=== PATIENT | female | born 1950 | race Caucasian/White ===

== ENCOUNTER 2017-06-08 07:29 | Emergency (ER) | payer OTHER, MEDICAID ==
[2017-06-08] MEDS ORDERED: PROMETHAZINE HCL 25 MG/ML INJ IVP ONE (08:01)
[2017-06-08] MEDS ORDERED: ONDANSETRON 4 MG/2 ML VIAL IVP ONE (08:01)
[2017-06-08] MEDS ORDERED: NS 1,000 ML IV ONE (08:01)
[2017-06-08] MEDS ORDERED: HALOPERIDOL LACT 5 MG/ML INJ IVP ONE (08:02)
[2017-06-08] MEDS ORDERED: IBUPROFEN 600 MG TAB PO ONE (08:15)
--- NOTE | 2017-06-08 08:15 | EDPHY ---
H & P Time Seen by Provider: 06/08/17 08:01 HPI/ROS: HPI Right foot injury. 66-year-old female by private vehicle with her friend. This patient reports that her dog dropped a bone on the dorsal aspect of her right midfoot. She complains of isolated pain to the right mid foot. She states the pain is worse with weight-bearing and she has difficulty weight-bearing on the right foot. She denies ankle or leg pain. No other complaint or injury. ROS: Constitutional: No fever, no chills. No weakness. Musculoskeletal: No back pain. No neck pain. As above. Skin: No rashes. No lacerations or abrasions. Neurological: No focal weakness or altered sensation. Past medical history: Social history: Physical Exam: General Appearance: Alert, no distress. This patient is responding to questions appropriately and in full sentences. This patient appears well- hydrated and well-nourished. Eyes: Pupils equal and round no pallor or injection. No lid edema, erythema or injection. Right foot exam: Significant for tenderness on palpation of the dorsal bony aspect of the right foot, from the proximal aspect of the metatarsals through the midfoot to distal dorsal ankle. There is no ecchymosis. No significant swelling. No deformity or crepitus noted on palpation. No warmth or erythema. No tenderness on palpation of the posterior aspects of the foot and ankle as well as the bilateral malleoli. No tenderness on palpation of the leg in the proximal fibula. The right foot is neurovascularly intact. Neurological: Motor sensory function is grossly intact. Cranial nerves are normal. Gait is normal. Skin: Warm and dry, no rashes. Musculoskeletal: Neck is supple and nontender. Extremities are symmetrical. All joints range without pain or impingement. Psychiatric: No agitation. No depression. Database: EKG: Imaging: Right foot x-ray series: Negative for fracture, subluxation, dislocation. Interpreted by me. Procedures: Emergency department course: After my evaluation, she was given 1 [place] tablets and 600 mg of ibuprofen. She was sent for appropriate x-rays. 8:40 a.m., patient re-evaluated. Resting comfortably at this time. Results of her x-rays were discussed with her. She states that she has an orthopedic boot at home as well as crutches. She states that she does have pain with weight- bearing. Plan will be to send her home with orthopedic boot and crutches, nonweightbearing. We will have her evaluated by Orthopedics in the next 2-3 days. Advance in imaging can be obtained as needed by Orthopedics. She is in agreement with this plan. Return to emergency department precautions were reviewed with her. All of her questions were answered. She was discharged in good condition. Differential Diagnosis: The differential diagnosis on this patient includes but is not limited to right foot sprain, right foot contusion. Lisfranc injury, fracture, subluxation, dislocation of the right foot or ankle unlikely. This represents a partial list of diagnoses considered. These considerations are based on history, physical exam, past history, reassessment and diagnostic testing. Smoking Status: Light smoker Constitutional: Initial Vital Signs Temperature (C) 36.6 C 06/08/17 07:34 Heart Rate 74 06/08/17 07:34 Respiratory Rate 16 06/08/17 07:34 Blood Pressure 146/76 H 06/08/17 07:34 O2 Sat (%) 97 06/08/17 07:34 O2 Delivery Mode Room Air Allergies/Adverse Reactions: morphine Allergy (Verified 02/25/15 11:16) Vomiting Penicillins Allergy (Verified 06/25/14 00:25) Home Medications: Medication Instructions Recorded Albuterol Sulfate [Albuterol 2 puffs IH DAILY PRN 02/21/15 Inhaler Hfa] Fluticasone/Salmeter 100/50Mcg 1 puffs IH BID 02/21/15 [Advair 100/50 (*)] Gabapentin [Neurontin 100 MG (*)] 100 mg PO TID 02/21/15 Meloxicam [Mobic 15 mg] 15 mg PO DAILY@18 02/21/15 Propranolol HCl [Inderal 20mg (*)] 20 mg PO BID 02/21/15 QUEtiapine FUMARATE [Seroquel 50 25 - 50 mg PO HS 02/21/15 mg (*)] Sertraline HCl [Zoloft 100mg (*)] 200 mg PO DAILY 02/21/15 clonazePAM [klonoPIN (*)] 0.5 mg PO BID 02/21/15 tiZANidine HCL [Zanaflex] 4 mg PO Q8 PRN 02/21/15 Hydrocodone/APAP 5/325 [[place] 1 - 2 tab PO Q4-6PRN PRN #7 tab 06/08/17 5/325 (*)] Medical Decision Making - Diagnostics Imaging Results: Imaging Impressions Foot X-Ray 06/08/17 07:36 Impression: Negative. No acute fracture. - Data Points Medications Given: Discontinued Medications Hydrocodone Bitart/Acetaminophen ([place] 5/325) 1 tab PO EDNOW ONE Stop: 06/08/17 08:17 Last Admin: 06/08/17 08:25 Dose: 1 tab Haloperidol Lactate (Haldol Injection) 2.5 mg IVP EDNOW ONE Stop: 06/08/17 08:03 Last Admin: 06/08/17 08:31 Dose: Not Given Sodium Chloride (Ns) 1,000 mls @ 0 mls/hr IV EDNOW ONE; Wide Open PRN Reason: Protocol Stop: 06/08/17 08:02 Last Admin: 06/08/17 08:31 Dose: Not Given Ibuprofen (Motrin) 600 mg PO EDNOW ONE Stop: 06/08/17 08:16 Last Admin: 06/08/17 08:25 Dose: 600 mg Ondansetron HCl (Zofran) 4 mg IVP EDNOW ONE Stop: 06/08/17 08:02 Last Admin: 06/08/17 08:32 Dose: Not Given Promethazine HCl (Phenergan) 6.25 mg IVP EDNOW ONE Stop: 06/08/17 08:02 Last Admin: 06/08/17 08:32 Dose: Not Given Departure - Departure Disposition: Home, Routine, Self-Care Clinical Impression: Right foot injury Condition: Good Instructions: Foot Contusion (ED), Foot Sprain (ED) Additional Instructions: Read and follow provided instructions. Follow-up with Orthopedics in 1-3 days days for re-evaluation. Advanced imaging can be obtained as needed by Orthopedics. Weightbear to right foot only as tolerated. Otherwise, crutches and orthopedic boot as discussed. Ibuprofen dosin mg every 6 hours with meals for the next 3 days only. [place]/Percocet dosin-2 every 4-[address] not drive on this medication. Return to the emergency department for worsening pain, discoloration, loss of sensation, swelling or other serious concerns. Referrals: Consuelo Tinsley MD [Primary Care Provider] - As per Instructions Gaston Callahan MD [Medical Doctor] - As per Instructions Prescriptions: Hydrocodone/APAP 5/325 [[place] 5/325 (*)] 1 - 2 tab PO Q4-6PRN PRN #7 tab PRN Reason: Pain, Moderate
[2017-06-08] MEDS ORDERED: HYDROCODONE/APAP 5/325 TAB PO ONE (08:16)
[2017-06-08 09:09] VITALS: BP 129/83; PULSE 58; RESP 18; TEMP 98.2; O2SAT 95
== END 2017-06-08 09:08 | disposition home or self-care (01) ==
DX: S99.921A Unspecified injury of right foot, initial encounter (principal); F17.200 Nicotine dependence, unspecified, uncomplicated; X58.XXXA Exposure to other specified factors, initial encounter

== ENCOUNTER 2019-02-10 11:32 | Inpatient (IN) | payer OTHER, MEDICAID ==
[2019-02-10] MEDS ORDERED: NS 1,000 ML IV ONE ×2 (11:51→13:19)
[2019-02-10] MEDS ORDERED: ONDANSETRON 4 MG/2 ML VIAL IVP ONE (11:52)
[2019-02-10 12:06] LABS: PLATELET COUNT 380 10^3/uL (150-400)
--- NOTE | 2019-02-10 12:22 | EDPHY ---
H & P Stated Complaint: Vomiting,weakness, Syncopal episodes Time Seen by Provider: 02/10/19 11:50 HPI/ROS: CHIEF COMPLAINT: Vomiting, syncope HISTORY OF PRESENT ILLNESS: 68-year-old female presents with persistent vomiting and syncope. Onset of nasal congestion, cough and sore throat 2 weeks ago. The cough has gradually increased and is productive of greenish phlegm. Associated with low-grade fever. Onset of shortness of breath yesterday. Vomited last night, followed by a syncopal episode. Recurrent syncope this morning after standing up. Continues to feel nauseated. Received a flu vaccination this year. REVIEW OF SYSTEMS: complete 10 point ROS reviewed and is negative except for the noted elements in the HPI - Personal History Tetanus Vaccine Date: 05/08/12 - Medical/Surgical History Hx Asthma: No Hx Chronic Respiratory Disease: No Hx Diabetes: No Hx Cardiac Disease: No Hx Renal Disease: No Hx Cirrhosis: No Hx Alcoholism: No Hx HIV/AIDS: No Hx Splenectomy or Spleen Trauma: No Other PMH: seizures, cll leukemia - Social History Smoking Status: Light smoker - Physical Exam Exam: General Appearance: Alert, pleasant Eyes: Pupils equal and round, no conjunctival injection ENT, Mouth: Mucous membranes slightly dry Neck: Normal inspection Respiratory: Lungs are clear to auscultation Cardiovascular: Regular rate and rhythm Gastrointestinal: Abdomen is soft and nontender Neurological: Alert, oriented x3, cranial nerves II through XII intact, motor 5 /5, sensory intact to light touch Skin: Warm and dry Extremities: Normal inspection Psychiatric: Mood and affect normal Constitutional: Initial Vital Signs Temperature (C) 36.6 C 02/10/19 11:39 Heart Rate 81 02/10/19 11:39 Respiratory Rate 16 02/10/19 11:39 Blood Pressure 123/96 H 02/10/19 11:39 O2 Sat (%) 98 02/10/19 11:39 O2 Delivery Mode Room Air Allergies/Adverse Reactions: morphine Allergy (Verified 02/25/15 11:16) Vomiting Penicillins Allergy (Verified 06/25/14 00:25) Home Medications: Medication Instructions Recorded Albuterol Sulfate [Albuterol 2 puffs IH DAILY PRN 02/21/15 Inhaler Hfa] Propranolol HCl [Inderal 20mg (*)] 20 mg PO BID 02/21/15 Sertraline HCl [Zoloft 100mg (*)] 200 mg PO DAILY 02/21/15 clonazePAM [klonoPIN (*)] 0.5 mg PO HS 02/21/15 Acetaminophen [Tylenol ES 500 mg 100 mg PO HS PRN 02/10/19 (*)] Gabapentin [Neurontin 300 MG (*)] 600 mg PO DAILY 02/10/19 Gabapentin [Neurontin 300 MG (*)] 900 mg PO HS 02/10/19 Promethazine HCl [Phenergan 12.5mg 6.25 - 12.5 mg PO Q8 PRN #7 tablet 02/12/19 tab] Medical Decision Making - Diagnostics Imaging Results: Chest x-ray independently reviewed by me reveals no acute disease. ED Course/Re-evaluation: This pt presents with viral sx, N/V and recurrent syncope. stat EKG reveals no evidence of ischemia or dysrhythmia. Syncope secondary to dehydration. IV NS 2 liters given for dehydration. CXR: no infiltrate. Continues to feel weak, will admit for further eval and dehydration. Differential Diagnosis: DDx for syncope includes though is not limited to ACS, CVA/TIA, hypoglycemia, vasovagal, dysrhythmia, dehydration, severe anemia. hemorrhage - Data Points Laboratory Results: Laboratory Results 02/11/19 04:15 02/11/19 04:15 Microbiology Results: MICROBIOLOGY 02/10/19 12:57 Blood Blood Culture - Preliminary 02/10/19 12:40 Blood Blood Culture - Preliminary Medications Given: Discontinued Medications Albuterol (Proventil Neb) 3 ml IH ONCE ONE Stop: 02/12/19 08:37 Last Admin: 02/12/19 08:42 Dose: 3 ml Clonazepam (Klonopin) 0.5 mg PO HS IGNACIO Stop: 08/09/19 20:59 Last Admin: 02/11/19 21:49 Dose: 0.5 mg Enoxaparin Sodium (Lovenox) 30 mg SC DAILY IGNACIO Stop: 08/10/19 08:59 Last Admin: 02/12/19 07:54 Dose: Not Given Gabapentin (Neurontin) 600 mg PO DAILY IGNACIO Stop: 08/10/19 08:59 Last Admin: 02/12/19 07:53 Dose: Not Given Gabapentin (Neurontin) 900 mg PO HS IGNACIO Stop: 08/09/19 20:59 Last Admin: 02/11/19 19:39 Dose: 900 mg Sodium Chloride (Ns) 1,000 mls @ 0 mls/hr IV ONCE ONE PRN Reason: Wide Open Stop: 02/10/19 11:52 Last Admin: 02/10/19 11:58 Dose: 1,000 mls Sodium Chloride (Ns) 1,000 mls @ 0 mls/hr IV ONCE ONE; Wide Open PRN Reason: Protocol Stop: 02/10/19 13:20 Last Admin: 02/10/19 14:23 Dose: 1,000 mls Lactated Ringer's (Lr) 1,000 mls @ 125 mls/hr IV CONT IGNACIO Stop: 08/09/19 13:29 Last Admin: 02/12/19 12:16 Dose: 1,000 mls Ondansetron HCl (Zofran) 4 mg IVP EDNOW ONE Stop: 02/10/19 11:53 Last Admin: 02/10/19 11:57 Dose: 4 mg Ondansetron HCl (Zofran) 4 mg IVP Q4HRS PRN PRN Reason: Nausea/Vomiting, Can't Take PO Stop: 08/09/19 15:33 Last Admin: 02/11/19 21:49 Dose: 4 mg Ondansetron HCl (Zofran Odt) 4 mg PO Q4HRS PRN PRN Reason: Nausea/Vomiting, Use 1st Stop: 08/09/19 15:33 Last Admin: 02/12/19 10:24 Dose: 4 mg Polyethylene Glycol/Electrolytes (Gavilyte - G) 4,000 ml PO ONCE ONE Stop: 02/11/19 18:46 Last Admin: 02/11/19 19:40 Dose: 4,000 ml Promethazine HCl (Phenergan) 6.25 - 12.5 mg IV Q6H PRN PRN Reason: Nausea/Vomiting, Can't Take PO Stop: 08/09/19 18:19 Last Admin: 02/11/19 17:23 Dose: 12.5 mg Sertraline HCl (Zoloft) 200 mg PO DAILY [facility] Stop: 08/10/19 08:59 Last Admin: 02/12/19 07:52 Dose: Not Given Point of Care Test Results: Chemistry 02/10/19 12:00 POC Troponin I 0.00 ng/mL ng/mL (0.00-0.08) Departure - Departure Disposition: [facility] Inpatient Acute Clinical Impression: Recurrent syncope, Viral syndrome Condition: Good
[2019-02-10] MEDS: LR 1,000 ML IV SCH (14:20)
--- NOTE | 2019-02-10 15:17 | CPEKG ---
Test Reason : OPEN Blood Pressure : / mmHG Vent. Rate : 076 BPM Atrial Rate : 077 BPM P-R Int : 143 ms QRS Dur : 077 ms QT Int : 373 ms P-R-T Axes : 074 -66 074 degrees QTc Int : 420 ms Sinus rhythm Left anterior fascicular block Anterior infarct, old Confirmed by Amna Enrique ([id number]) on 02/10/2019 3:17:32 PM Referred By: Amna Enrique Confirmed By:Amna Enrique
[2019-02-10] MEDS ORDERED: ONDANSETRON DISINTEGRATING 4 MG TAB PO PRN (15:34)
[2019-02-10] MEDS ORDERED: ACETAMINOPHEN 325 MG TAB PO PRN (15:34)
[2019-02-10] MEDS: ONDANSETRON 4 MG/2 ML VIAL IVP PRN ×2 (16:13→21:09)
--- NOTE | 2019-02-10 17:44 | GHP ---
[f rep st] HISTORY AND PHYSICAL DATE OF ADMISSION: 02/10/2019 CHIEF COMPLAINT: Weakness with associated vomiting and syncopal episode. HISTORY OF PRESENT ILLNESS: Silvia Mcdaniels is a 68-year-old woman who has a history of emphysema, CLL in remission, who presented to the emergency room with complaints of nasal congestion, ongoing vomiting, and 2 episodes of syncope. She describes being sick for a few days with a cold and then started feeling poorly over the past 3 days. She has been having episodes of coughing. She had 2 episodes of emesis without hematemesis. Then last night she was walking to the bathroom and fainted. She went back to bed, still continued to feel poorly when getting out of the bed this morning. After getting out of bed, she passed out again. She had no pre-syncopal symptoms or chest pain. She hit the back of her head on her dresser. She did not sustain any other injuries except some tenderness to the top of her head. She has had a small amount of diarrhea a few days ago. She had a low-grade fever at home at 99 degrees and some chills. During my interview, she is feeling markedly better after getting IV hydration and is tolerating clear liquids. Also of note, she has a history of emphysema. She is usually short of breath when she is very active. She has had consistent shortness of breath at all times with walking, resting. Also of note, she has lost a significant amount of weight loss over the past year. She has gone from 110 pounds to 84 pounds. She said this has been monitored by her primary care provider and she has had no concerns. PAST MEDICAL HISTORY: 1. COPD with emphysema. 2. CLL in remission. She was treated with chemotherapy. 3. Irritable bowel syndrome. 4. 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 5. History of anxiety. 6. L4-L5 rupture. She has seen Dr. Kent at [facility]. She is status post a steroid injection approximately 2 weeks ago. PAST SURGICAL HISTORY: 1. In 2014, an anterior cervical diskectomy and fusion. 2. In 2011, she had a repair of her left wrist injury and nerve repair. SOCIAL HISTORY: She has a history of smoking. She quit approximately a year ago, but said she often has some relapses. She does not drink alcohol. She is not in a relationship. She has 2 children. She is currently not working. FAMILY HISTORY: Her mom had a heart attack and from this at age 58. In her father, it is unknown. ALLERGIES: Penicillin. She said this put her in a coma as a child. Morphine causes nausea, but not a true allergy. HOME MEDICATIONS: Klonopin 0.5 mg p.o. twice daily, Zoloft 200 mg daily, Inderal 20 mg twice daily, Neurontin 100 mg t.i.d., Advair 1 puff inhalation twice daily, albuterol 2 puffs p.r.n. REVIEW OF SYSTEMS: A 10-point review of system was performed and was negative other than pertinent positives in HPI and Past Medical History. PHYSICAL EXAM: GENERAL: Silvia is a 68-year-old female who is quite thin, but does not appear to be in any significant distress. VITAL SIGNS: Blood pressure is 123/83, heart rate is 67, respiratory rate is 16, O2 sats on room air are 98%, temperature is 36.8 Celsius. EYES: Pupils are equal and reactive. EOMs are intact. No conjunctival injection noted. ENT: Normal ears. Hearing intact. NECK: Trachea is midline. CARDIOVASCULAR: She is in a regular rate and rhythm. No murmurs, rubs, or gallops noted. CHEST/LUNGS: Normal respiratory effort. Clear without wheezing, rales, or rhonchi. Diminished bibasilar. ABDOMEN: Soft, nontender. SKIN: No rashes. Warm, dry , intact. MUSCULOSKELETAL: Normal gait. Equal upper and lower extremity strength. PSYCHIATRIC: She is alert and oriented. Normal affect. Normal judgment, insight. Normal memory. DATA: Reviewed. A CBC shows a white blood cell count 12.97, hemoglobin 15.5, hematocrit 45.8, platelet count 380. Blood gas shows a venous lactic acid of 1.7. Chemistry: Sodium 130, potassium 4.5, chloride 103, CO2 22, BUN 25, creatinine 0.8, calcium 10.2. Troponin 0.00. A chest x-ray was performed which shows airway disease with no pneumonia identified. ECG shows sinus rhythm with a left anterior fascicular block. It shows an old anterior infarct. ASSESSMENT/PLAN: 1. Syncopal episode x2. I suspect this was secondary from dehydration and not eating much. Will check orthostatics. Will hydrate her with IV fluids. Will place her on the monitoring and evaluation advisor to evaluate for any arrhythmias. 2. Leukocytosis. This is likely due to a viral illness. Will recheck labs in the morning. 3. Nausea and vomiting. Will provide anti-emetics and fluids. 4. Viral illness. A PCR was checked which is negative. Blood cultures are pending. Chest x ray shows nothing acute. 5. Dehydration. Suspect this is the etiology of the above and related to the syncopal event. Continue IV fluids. 6. Significant weight loss. She assures me that she is being followed by her primary care provider. Would recommend that she see her oncologist for further evaluation. 7. COPD. She doesn't have any exacerbation of this. Will resume home inhalers. 8. Back pain. She is seeing Dr. Kent at [facility]. Further followup with her. 9. Deep venous thrombosis prophylaxis, moderate risk. Will place her on low- molecular weight heparin. 10. She will be admitted as observation status. This can be further evaluated if she needs further care. /[id number]/MODL MTDD
[2019-02-10] MEDS: PROMETHAZINE HCL 25 MG/ML INJ IV PRN (18:29)
[2019-02-10] MEDS ORDERED: ALBUTEROL 60 PUFFS/8 GM MDI IH PRN (20:30)
[2019-02-10] MEDS: clonazePAM 0.5 MG TAB PO SCH (21:09)
[2019-02-10] MEDS ORDERED: GABAPENTIN 100 MG CAP PO SCH (22:00)
[2019-02-10] MEDS: GABAPENTIN 300 MG CAP PO SCH (22:52)
[2019-02-11] MEDS: LR 1,000 ML IV SCH ×3 (00:24→18:21)
[2019-02-11] MEDS: PROMETHAZINE HCL 25 MG/ML INJ IV PRN ×3 (00:24→17:23)
[2019-02-11] MEDS: ONDANSETRON 4 MG/2 ML VIAL IVP PRN ×3 (01:55→21:49)
[2019-02-11 04:59] LABS: PLATELET COUNT 282 10^3/uL (150-400)
[2019-02-11] MEDS: GABAPENTIN 300 MG CAP PO SCH ×2 (09:10→19:39)
[2019-02-11] MEDS: SERTRALINE HCL 100 MG TAB PO SCH (09:11)
[2019-02-11] MEDS: ENOXAPARIN 30 MG/0.3 ML SYR SC SCH (10:07)
--- NOTE | 2019-02-11 10:28 | HOSPPROG ---
Hospitalist Progress Note Assessment/Plan: 68-year-old admitted with intractable nausea vomiting. She has also had a notable weight loss of over 20 lb since the summer. She has had some mild dysphagia since a cervical spine surgery 3 years ago with some difficulty swallowing solids. # nausea vomiting. Unclear etiology. Seems that it has been going on for a while intermittently and over the last 2 weeks has significantly worsened. Will do a video swallow with speech therapy and check a CT scan of her abdomen and pelvis and consider GI evaluation for EGD if her symptoms persist. In the meantime will continue IV fluids * IV fluids * CT scan * Speech evaluation with video * Consider GI # weight loss, unclear etiology. Patient has not had a colonoscopy in many years, she does get routine mammography. Her main complaint is some early satiety and dysphagia as her reasons for poor p.o. Intake * See above # COPD, stable # syncope, likely secondary to dehydration and poor p.o. Intake will monitor her symptoms now that she is hydrated. Will monitor on telemetry and consider echocardiogram if she has any further episodes. # CLL, in remission with normal counts currently. # chronic back pain secondary to L4-5 rupture. Followed at [facility] # anxiety with a history of pseudoseizures # anemia, likely chronic I suspect that her drop overnight was dilutional, will continue to monitor. Patient will need additional midnight stay for further evaluation of her ongoing nausea vomiting poor p. O. Intake and weight loss. Subjective: Patient new to me and chart reviewed. Complains of early satiety and some mild dysphagia since her anterior neck surgery. However she has had significant weight loss and nausea vomiting. She says her bowel movements have been normal. Objective: Vital Signs Temp Pulse Resp BP Pulse Ox 36.6 C 66 18 113/66 99 02/11/19 07:45 02/11/19 07:45 02/11/19 07:45 02/11/19 07:45 02/11/19 07:45 Laboratory Results 02/11/19 04:15 02/11/19 04:15 - Physical Exam Constitutional: not in pain, chronically ill appearing Eyes: PERRL Ears, Nose, Mouth, Throat: moist mucous membranes Cardiovascular: regular rate and rhythym Respiratory: no respiratory distress, clear to auscultation Gastrointestinal: soft, non-tender abdomen, no palpable masses Genitourinary: no bladder fullness Skin: warm Neurologic: AAOx3 Psychiatric: interacting appropriately, anxious ICD10 Worksheet Patient Problems: Problems Problem Status Onset Cervical stenosis of spinal canal Acute Arthrodesis status Acute
[2019-02-11] MEDS ORDERED: IOPAMIDOL (ISOVUE-300) 100 ML BTL ONE (10:43)
--- NOTE | 2019-02-11 12:29 | ASMTCMCOM ---
CM Note CM Note Notes: Pt admitted for vomiting and fainting. Pt lives alone but is normally independent, PT/OT to belkys, HELEN w/f. DC Plan:TBD Date Signed: 02/11/2019 12:29 PM Electronically Signed By:Tiana Mayer RN
--- NOTE | 2019-02-11 17:31 | PDMN ---
Medical Necessity Medical necessity: MCG: M370 vomiting- A-1 day : 68 yo F presents with intractable N/V. with wt loss of 20lb since summer. - worsening in last 2 weeks. mild dysphagia, poor po intake., also with syncope, likely secondary to dehydration. poor PO status changed to INPT 02/11/19 for ongoing med nec. further monitoring, eval and tx of above IVF IV antiemetics,
[2019-02-11] MEDS ORDERED: PEG 3350/NA SULF,BICARB,CL/KCL (GAVILYTE-G) 4000 ML BTL PO ONE (18:45)
[2019-02-11] MEDS: clonazePAM 0.5 MG TAB PO SCH (21:49)
[2019-02-12] MEDS: LR 1,000 ML IV SCH ×2 (02:16→12:16)
[2019-02-12 05:10] LABS: PLATELET COUNT 272 10^3/uL (150-400)
--- NOTE | 2019-02-12 06:02 | BCON ---
[f rep st] BEHAVIORAL HEALTH CONSULTATION REFERRING PHYSICIAN: Eleni Gama MD CHIEF COMPLAINT: A 68-year-old woman who I have been asked to see in consultation by Dr. Eleni chris for weight loss, mild dysphagia, early satiety, with nausea and vomiting. HISTORY OF PRESENT ILLNESS: This 68-year-old woman was admitted to the hospital on 02/10/2019. She does have a history of COPD and CLL in remission. She presented to the emergency department with meggan al congestion with nausea and vomiting with syncopal episodes. She had been sick for several days wi th cold symptoms. She felt unwell for several days. She had been having episodes of coughing, had 2 episodes of emesis without hematemesis. Then on the day of admission, she had an episode of syncope . This brought her to the emergency department. She has had some loose stool. Had significant weig ht loss over the last year. She also describes early satiety and difficulty eating. She also has so me difficulty swallowing. She has been seen by speech pathology without any significant signs of nubia pharyngeal dysphagia. The patient has not had a previous endoscopy or colonoscopy. She also has a h istory of anxiety and chronic back pain. She does have anemia. Hemoglobin of 11.4 and hematocrit 34 .1. Serum chemistries revealed a low albumin at 2.9. CT scan was done of the abdomen that showed mu ltiple indeterminate low-attenuation areas seen within the liver and spleen. Somewhat worrisome for metastatic disease. Asked to see patient for further evaluation. PAST MEDICAL HISTORY: Remarkable for COPD, CLL in remission, irritable bowel syndrome, history of ps eudoseizures secondary to anxiety, history of anxiety, L4-L5 disk rupture, previous FITZ injections. PAST SURGICAL HISTORY: Remarkable for anterior cervical diskectomy and fusion, repair of her left wr ist from injury and nerve repair. SOCIAL HISTORY: Smoker, quit approximately a year ago. Does not drink alcohol. Has 2 children. Cu rrently not working. FAMILY HISTORY: Remarkable for mother who had a heart attack at age 58. Otherwise, family history n egative as it pertains to chief complaint. ALLERGIES: Penicillin, morphine. MEDICATIONS: Home medications, Klonopin, Zoloft, Inderal, Neurontin, Advair, and albuterol. REVIEW OF SYSTEMS: Negative for 10 systems other than mentioned in HPI. PHYSICAL EXAM: VITAL SIGNS: 127/72, heart rate of 63, respiratory rate 16, afebrile. GENERAL: A v ayesha pleasant woman in no acute distress, thin-appearing, lying in bed. HEENT: Normocephalic, atraum atic. EOMI. Neck supple. No cervical adenopathy. No thyromegaly. Mucous membranes moist. LUNGS: Clear. CARDIAC: Normal S1, S2. No murmur. ABDOMEN: Soft, benign, nontender. No hepatosplenome adriano. EXTREMITIES: Thin without clubbing, cyanosis, edema. SKIN: Warm, dry, intact. NEURO: Nonf ocal. PSYCH: Alert and oriented x3 with normal affect. LABORATORY DATA: Sodium 142, potassium 3.9, chloride 114, CO2 23, BUN of 13. Liver function tests n ormal. AST of 18, ALT of 32, alkaline phosphatase 68. Hemoglobin 11.4, hematocrit 34.1. IMPRESSION: A 68-year-old woman with weight loss, anorexia, early satiety, and difficulty swallowing . CT scan with nonspecific findings in the liver and spleen, questionable metastatic disease. RECOMMENDATIONS: We will proceed with diagnostic endoscopy and colonoscopy. Clear liquid diet. N.p .o. after midnight. Will prep with 2-4 L of GoLYTELY at night until stools clear or yellow. We will follow with you. /[id number]/MODL
[2019-02-12] MEDS: SERTRALINE HCL 100 MG TAB PO SCH (07:52)
[2019-02-12] MEDS: GABAPENTIN 300 MG CAP PO SCH (07:53)
[2019-02-12] MEDS: ENOXAPARIN 30 MG/0.3 ML SYR SC SCH (07:54)
[2019-02-12] MEDS ORDERED: ALBUTEROL 3 ML DEYVIAL IH ONE (08:36)
[2019-02-12] MEDS ORDERED: ALBUTEROL 3 ML DEYVIAL ONE (08:37)
--- NOTE | 2019-02-12 08:37 | PDANEPAE ---
ANE History of Present Illness EGD and colonoscopy ANE Past Medical History - Cardiovascular History Hx Hypertension: Yes Hx Arrhythmias: No Hx Chest Pain: No Hx Coronary Artery / Peripheral Vascular Disease: No Hx CHF / Valvular Disease: No Hx Palpitations: No Cardiovascular History Comment: PCP MONITORS BP MEDS - Pulmonary History Hx COPD: Yes Hx Asthma/Reactive Airway Disease: No Hx Recent Upper Respiratory Infection: No Hx Oxygen in Use at Home: No Hx Sleep Apnea: No Sleep Apnea Screening Result - Last Documented: Negative Pulmonary History Comment: ASTHMA. USES INHALERS INSTRUCTED PT TO BRING DOS - Neurologic History Hx Cerebrovascular Accident: No Hx Seizures: Yes Hx Dementia: No Neurologic History Comment: LAST SEIZURE A COUPLE MONTHS AGO. LEFT ARM/ HAND/ LEG AND RIGHT ARM HAVE NUMBNESS AND TINGLING - Endocrine History Hx Diabetes: No Obesity: no (weight loss of about 30 lbs over 1 year) - Renal History Hx Renal Disorders: No - Liver History Hx Hepatic Disorders: No - Neurological & Psychiatric Hx Hx Neurological and Psychiatric Disorders: Yes Neurological / Psychiatric History Comment: ANXIETY - Cancer History Hx Cancer: Yes Cancer History Comment: CHRONIC LYMPHOCYTIC LEUKEMIA- CHEMO IN 2007 - Congenital Disorder History Hx Congenital Disorders: No - GI History GERD: no Hx Gastrointestinal Disorders: No - Other Health History Other Health History: NONE - Chronic Pain History Chronic Pain: Yes (Back) - Surgical History Prior Surgeries: LEFT WRIST REPAIR WITH CUI 05/13/2012. HYSTERECTOMY 1977. LUMPECTOMY FROM BREAST 1979. ACDF C2-7 ANE Review of Systems Review of Systems: - Exercise capacity METS (RN): 4 METS ANE Patient History - Allergies Allergies/Adverse Reactions: morphine Allergy (Verified 02/25/15 11:16) Vomiting Penicillins Allergy (Verified 06/25/14 00:25) - Home Medications Home Medications: Albuterol Sulfate [Albuterol Inhaler Hfa] 2 puffs IH DAILY PRN 02/21/15 [Last Taken Unknown] Propranolol HCl [Inderal 20mg (*)] 20 mg PO BID 02/21/15 [Last Taken 02/09/19] Sertraline HCl [Zoloft 100mg (*)] 200 mg PO DAILY 02/21/15 [Last Taken 02/07/19] clonazePAM [klonoPIN (*)] 0.5 mg PO HS 02/21/15 [Last Taken 02/09/19] Acetaminophen [Tylenol ES 500 mg (*)] 100 mg PO HS PRN 02/10/19 [Last Taken Unknown] Gabapentin [Neurontin 300 MG (*)] 600 mg PO DAILY 02/10/19 [Last Taken 02/09/19] Gabapentin [Neurontin 300 MG (*)] 900 mg PO HS 02/10/19 [Last Taken 02/09/19] - NPO status NPO Since - Liquids (Date): 02/12/19 NPO Since - Liquids (Time): 00:00 NPO Since - Solids (Date): 02/12/19 NPO Since - Solids (Time): 00:00 - Smoking Hx Smoking Status: Light smoker - Family Anes Hx Family Hx Anesthesia Complications: NONE ANE Labs/Vital Signs - Labs Result Diagrams: 02/12/19 04:27 02/12/19 04:27 - Vital Signs Blood Pressure: 122/81 Heart Rate: 64 Respiratory Rate: 18 O2 Sat (%): 100 Height: 165.1 cm Weight: 37.195 kg ANE Physical Exam - Airway Neck exam: FROM Mallampati Score: Class 1 Mouth exam: dentures - Pulmonary Pulmonary: clear to auscultation - Cardiovascular Cardiovascular: regular rate and rhythym - ASA Status ASA Status: II ANE Anesthesia Plan Anesthesia Plan: GA with mask
[2019-02-12] MEDS ORDERED: PROPOFOL 200 MG/20 ML VIAL ONE ×2 (08:45→09:06)
--- NOTE | 2019-02-12 09:06 | GIREPORT ---
[facility] Surgical Services - Endoscopy Department Patient Name: Silvia Mcdaniels Procedure Date: 02/12/2019 8:39 AM Patient Type: Inpatient Attending MD/ ER Physician: Presley Szymanski MD Procedure: Upper GI endoscopy Indications: Anorexia, Early satiety, Nausea, Weight loss Providers: Presley Szymanski MD Medicines: Propofol per Anesthesia Complications: No immediate complications. Description of Procedure: After obtaining informed consent, the endoscope was passed under direct vision. Throughout the procedure, the patient's blood pressure, pulse, and oxygen saturations were monitored continuously. The Endoscope was intro duced through the mouth, and advanced to the second part of duodenum. The [facility] er GI endoscopy was accomplished without difficulty. The patient tolerated th e procedure well. Findings: The examined esophagus was normal. The entire examined stomach was normal. Biopsies were taken with a cold forceps for histology. The examined duodenum was normal. Biopsies for histology were taken wit h a cold forceps for evaluation of celiac disease. Estimated Blood Loss: Estimated blood loss: none. Post Op Diagnosis: - Normal esophagus. - Normal stomach. Biopsied. - Normal examined duodenum. Biopsied. Recommendation: - Await pathology results. - Perform a colonoscopy today. - Thank you for allowing me to participate in the care of your patient. Attending Participation: I personally performed the entire procedure. Presley Szymanski MD Presley Szymanski MD 02/12/2019 9:05:33 AM This report has been signed electronicallyStevjaguar Szymanski MD Number of Addenda: 0 Note Initiated On: 02/12/2019 8:39 AM [email or web address]
[2019-02-12] MEDS ORDERED: NALOXONE HCL 0.4 MG/ML INJ IVP PRN (09:20)
--- NOTE | 2019-02-12 09:23 | GIREPORT ---
[facility] Surgical Services - Endoscopy Department Patient Name: Silvia Mcdaniels Procedure Date: 02/12/2019 8:40 AM Patient Type: Inpatient Attending MD/ ER Physician: Presley Szymanski MD Procedure: Colonoscopy Indications: Abnormal CT of the GI tract, Weight loss Providers: Presley Szymanski MD Medicines: Propofol per Anesthesia Complications: No immediate complications. Description of Procedure: After obtaining informed consent, the scope was passed under direct vis ion. Throughout the procedure, the patient's blood pressure, pulse, and oxyg en saturations were monitored continuously. The Colonoscope with irrigatio n channel was introduced through the anus and advanced to the cecum, identified by appendiceal orifice and ileocecal valve. The colonoscopy was performed without difficulty. The patient tolerated the procedure well. The quality of the bowel preparation was adequate. The ileocecal valve, appendiceal orifice, and rectum were photographed. Findings: Many small and large-mouthed diverticula were found in the sigmoid colo n. The exam was otherwise without abnormality on direct and retroflexion v iews. Estimated Blood Loss: Estimated blood loss: none. Post Op Diagnosis: - Diverticulosis in the sigmoid colon. - The examination was otherwise normal on direct and retroflexion views . - No specimens collected. Recommendation: - High fiber diet. - Continue present medications. - Repeat colonoscopy in 10 years for screening purposes. - Thank you for allowing me to participate in the care of your patient. Attending Participation: I personally performed the entire procedure. Presley Szymanski MD Presley Szymanski MD 02/12/2019 9:23:03 AM This report has been signed electronicallyStjacey Szymanski MD Number of Addenda: 0 Note Initiated On: 02/12/2019 8:40 AM Total Procedure Duration Time 0 hours 12 minutes 3 seconds [email or web address]
--- NOTE | 2019-02-12 11:27 | POSTANESTH ---
Post Anesthetic Evaluation Cardiovascular Status: Normal, Stable Respiratory Status: Similar to Pre-op Cond. Level of Consciousness/Mental Status: Can Participate in Eval Pain Control: Adequate, Prn Tx Ordered Nausea/Vomiting Control: Adequate, Prn Tx Ordered Complications Possibly Related to Anesthesia: None Noted
[2019-02-12 11:30] VITALS: BP 97/76
--- NOTE | 2019-02-12 12:55 | ASDISCHSUM ---
Discharge Information Plan Status:Home with No Needs Medically Cleared to Leave:02/12/2019 Discharge Date:02/12/2019 CM D/C Disposition:Home, Routine, Self-Care ADT D/C Disposition:Home, Routine, Self-Care Projected Discharge Date:02/12/2019 Transportation at D/C:Family Discharge Delay Reason: Follow-Up Date:02/12/2019 Discharge Slot: Final Diagnosis:vomiting, syncope Placement Information Patient Contact Information Contact Name:NICHOLAS Relationship:dasam Address: City:[place] Alternate Phone: [facility]/Zip Code:[place] Email: Financial Information Financial Class:Medicare Advantage Plans Primary Plan Desc:ALANA HOYT PPO MEDICARE Primary Plan Number:[id number] Secondary Plan Desc:MED[place] Secondary Plan Number:[id number] Assessment Information LACE LACE Length of stay for Answers: 2 days current admission Acuity / Level of Answers: Yes Care: Did the patient have an inpatient admission? Comorbidities - select Answers: Any tumor (including all that apply lymphoma or leukemia) Other Notes: pseudoseizures # of Emergency department Answers: 1-2 visits in the last 6 months Social determinants Answers: Mental health diagnosis (anxiety, depression, pers onality disorders, etc.) Score: 12 Date Signed: 02/12/2019 12:53 PM Electronically Signed By:Cici Sherman [facility] CM Progress Note CM Note CM Note Notes: Pt admitted for vomiting and fainting. Pt lives alone but is normally independent, PT/OT to HELEN rizvi w/fMalik REIS Plan:TBD Date Signed: 02/11/2019 12:29 PM Electronically Signed By:Tiana Mayer RN Case Management Discharge Plan Note Case Management Discharge Discharge Order Complete? Answers: Yes Patient to Obtain Answers: via Family Medications Transportation Arranged Answers: Family/Friends Transport will Pick (Date 02/12/2019 12:00 AM & Time) Family Notified Answers: Yes Notes: granddaughter in the ro om Discharge Comments Notes: Spoke with pt and granddaughter in the room. Pt happy to discharge independently with support from granddaughter. No CM needs noted at this time. Date Signed: 02/12/2019 12:55 PM Electronically Signed By:Cici Sherman Intervention Information Intervention Type:*IM-Signed Date of Service:02/12/2019 12:52 PM Patient Type:Inpatient Staff Member:Cici Sherman Hours: Discipline:Nonfarm Animal Caretaker Severity: Comment:
--- NOTE | 2019-02-12 15:58 | GDS ---
[f rep st] DISCHARGE SUMMARY DIAGNOSES: 1. Nausea, vomiting, improved. 2. Syncope secondary to dehydration and poor p.o. intake. 3. Weight loss. 4. Severe protein calorie malnutrition with a body mass index of 13.6. 5. Depression. 6. Chronic obstructive pulmonary disease. 7. Chronic lymphocytic leukemia in remission with normal counts. 8. Chronic back pain. 9. Anxiety and a history of pseudoseizures. 10. Chronic anemia, stable. PROCEDURES DONE: 1. Chest x-ray, no abnormalities. 2. CT scan of the abdomen and pelvis showing multiple indeterminate low-attenuation areas seen withi n the liver and spleen. These are quite small, too small to be biopsied, and may represent cysts, bu t again too small to further evaluate at this time. Recommendations: For followup CT scan of the ab domen and pelvis with contrast in 3 to 6 months, sooner if she has ongoing weight loss. 3. Upper endoscopy negative. 4. Colonoscopy normal. CONSULTATIONS: GI, Presley Szymanski MD. HOSPITAL COURSE: The patient is a 68-year-old who comes in with syncope. She had been having nausea and vomiting with poor p.o. intake for 2 weeks prior to admission. She had what sounds like an orth ostatic event prior to admission. EKG was unremarkable. An evaluation included the above procedures . She had no further issues after she was hydrated here in the hospital. She did undergo the above procedures due to her ongoing nausea, vomiting, as well as weight loss. Unfortunately, there was no obvious cause noted. However, she improved markedly after hydration and she was eating normally at t he time of discharge. There were noted to be some very small indeterminate spots on her liver and sp khoa. The radiologist was unclear what they were. They could represent simple cysts. They were too small to characterize and recommendations are for a followup CT scan in 3 to 6 months, if she starts to gain weight, then it can wait for 6 months. CONDITION ON DISCHARGE: Good. Vital signs are stable. She is feeling much better and eating a regu lar diet without any problems. DISCHARGE MEDICATIONS: Please see discharge medication form. She was given a small supply of Phener rosangela to use as needed for nausea and vomiting. FOLLOWUP: She should follow up with Dr. Tinsley as scheduled and she will need a followup CT scan in 3 to 6 months to follow up on her liver and splenic indeterminate lesions. Total time spent with patient on day of discharge in coordination of care is 35 minutes. /[id number]/MODL
== END 2019-02-12 13:01 | disposition home or self-care (01) | DRG 640 ==
LOC: F3E 14:13 → OBSVTOIN 02-11 11:04
PROVIDERS: ADMIT Internal Medicine; ATTEND Internal Medicine
DX: E86.0 Dehydration (principal); R11.2 Nausea with vomiting, unspecified; R63.4 Abnormal weight loss; E43 Unspecified severe protein-calorie malnutrition; Z68.1 Body mass index [BMI] 19.9 or less, adult; D64.89 Other specified anemias; K57.30 Diverticulosis of large intestine without perforation or abscess without bleeding; K58.9 Irritable bowel syndrome, unspecified; R13.19 Other dysphagia; B96.81 Helicobacter pylori [H. pylori] as the cause of diseases classified elsewhere; R93.2 Abnormal findings on diagnostic imaging of liver and biliary tract; R93.89 Abnormal findings on diagnostic imaging of other specified body structures; M51.86 Other intervertebral disc disorders, lumbar region; I10 Essential (primary) hypertension; J43.9 Emphysema, unspecified; F17.210 Nicotine dependence, cigarettes, uncomplicated; F41.9 Anxiety disorder, unspecified; F32.9 Major depressive disorder, single episode, unspecified; Z98.1 Arthrodesis status; Z85.6 Personal history of leukemia
CPT/HCPCS: 84484-ER; 92610-GN; 92611-GN; 96374; 97161-GP; 97165-GO; G0378; J1650; J2405; J2550; J2704; J7613; Q9967

== ENCOUNTER → 2019-05-04 | Outpatient (CLI) | payer OTHER, MEDICAID | LOC: FIMAGING 11:04 ==